=== PATIENT | male | born 2000 | race Hispanic/Latino ===

== ENCOUNTER 2023-02-17 18:08 | Emergency (ER) | payer OTHER ==
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
[2023-02-17 20:49] VITALS: BP 107/74; TEMP 97.1; O2SAT 100
== END 2023-02-17 20:27 | disposition home or self-care (01) ==
LOC: ER 18:08
DX: S01.81XA Laceration without foreign body of other part of head, initial encounter (principal); S93.402A Sprain of unspecified ligament of left ankle, initial encounter; S90.02XA Contusion of left ankle, initial encounter
CPT/HCPCS: 99284